=== PATIENT | female | born 1975 | race Caucasian/White ===

== ENCOUNTER 2020-05-06 21:55 | Observation (INO) | payer OTHER ==
[~2020-05-06] VITALS: Ht 167.6 cm; Wt 65.1 kg
[2020-05-06 21:57] VITALS: BP 123/73
[2020-05-06 22:32] LABS: ABSOLUTE NEUTROPHILS 2.1 thou/uL (1.4-8.2); BASOPHILS 1.3 % (0.0-2.0); EOSINOPHILS 5.4 % (0.0-3.0); HEMATOCRIT 37.6 % (37.0-47.0); HEMOGLOBIN 12.8 gm/dL (12.0-15.0); LYMPHOCYTES 41.1 % (24.0-44.0); MCH 30.6 pg (26.0-34.0); MCV 89.8 fL (80.0-100.0); MONOCYTES 10.2 % (1.0-8.0); PLATELET COUNT 243 thou/uL (150-400); RBC 4.19 mil/uL (4.20-5.00); RDW 13.1 % (10.5-14.5); WBC 5.1 thou/uL (4.0-11.0)
[2020-05-06 22:40] LABS: ANION GAP 8 mmol/L (7-16); BUN 12 mg/dL (7-18); CALCIUM 8.3 mg/dL (8.5-10.1); CHLORIDE 103 mmol/L (98-107); CO2 25 mmol/L (21-32); CREATININE 0.7 mg/dL (0.6-1.0); GLUCOSE 145 mg/dL (74-106); POTASSIUM 4.2 mmol/L (3.5-5.1); SODIUM 136 mmol/L (136-145)
[2020-05-06 22:50] LABS: ALBUMIN 3.2 g/dL (3.4-5.0); SGOT 31 U/L (15-37); SGPT 42 U/L (14-59); TOTAL BILIRUBIN 0.3 mg/dL (0.2-1.0); TOTAL PROTEIN 6.1 g/dL (6.4-8.2); TROPONIN-I <0.06 ng/mL (<0.06)
[2020-05-06 23:56] VITALS: BP 130/89
[2020-05-07] VITALS (7 sets, daily range): BP systolic 102–120; BP diastolic 63–79
--- NOTE | 2020-05-07 03:41 | NUR ---
PT ADMITTED TO ROOM 218 FROM ER, DENIES PAIN, VSS, RA, NPO, ADMITTED TO UNIT ALL QUESTIONS RESOLVED ORIENTED TO ROOM, WILL CON'T TO MONITOR PER PPOC.
[2020-05-07 05:04] LABS: CHOLESTEROL 133 mg/dL (<200); HDL CHOLESTEROL 64 mg/dL (>40); LDL CHOLESTEROL 61 mg/dL (<100); TC:HDL 2.1 Ratio (Not establshd); TRIGLYCERIDE 43 mg/dL (<150); VLDL 9 mg/dL (<40)
[2020-05-07 05:05] LABS: SERUM ASSESSMENT Clear
[2020-05-07 05:35] LABS: HEMATOCRIT 39.5 % (37.0-47.0); HEMOGLOBIN 13.1 gm/dL (12.0-15.0); MCH 30.3 pg (26.0-34.0); MCHC 33.3 g/dL (28.0-37.0); RBC 4.34 mil/uL (4.20-5.00); RDW 12.9 % (10.5-14.5); WBC 4.4 thou/uL (4.0-11.0)
[2020-05-07 11:10] LABS: HEMATOCRIT 40.3 % (37.0-47.0); HEMOGLOBIN 13.3 gm/dL (12.0-15.0); MCH 30.1 pg (26.0-34.0); MCV 90.9 fL (80.0-100.0); RBC 4.43 mil/uL (4.20-5.00); WBC 3.9 thou/uL (4.0-11.0)
[2020-05-08 01:06] VITALS: BP 116/75
[2020-05-08 04:05] LABS: GLYCOHEMOGLOBIN (HGB A1C) 5.8 % (4.8-5.6)
--- NOTE | 2020-05-08 07:24 | EKG ---
[address] [address] ELECTROCARDIOGRAM REPORT Name: RADHA OCHOA Room #: 218-P [facility]..#: [id number] Admission: 05/06/20 Attend Phys: Andrew Camarena MD Discharge: Date of : 71 Report #: [id number] [facility] Test Date: 2020-05-06 Test Time: 22:05:37 Pat Name: RADHA OCHOA Department: Room: 218 Gender: F Mail Room: BLAIRE MCMULLEN : 1975 Requested By: Earl Andrade Order Number: [id number] MD: Mac Toro Measurements Intervals [place] Rate: 86 P: 63 IA: 146 QRS: 56 QRSD: 79 T: 57 QT: 339 QTc: 406 Interpretive Statements Sinus rhythm No previous ECG available for comparison Electronically Signed On 05-08-2020 7:23:52 CDT by Mac Toro [email or web address] <ELECTRONICALLY SIGNED> By: Mac Toro MD, [facility] 05/08/20 0723 [id number] 04 Mac Toro MD, FACC /EPI
--- NOTE | 2020-05-08 07:54 | NUR ---
PT AMBULATING TO BATHROOM INDEPENDENTLY AND IS TOLERATING WELL. PT REPORTED A BRIEF PERIOD OF CHEST PAIN AT 0100--LASTED 2 MINUTES. VITALS TAKEN AND WERE NORMAL. NO REPORTS OF CHEST PAIN REMAINDER OF SHIFT. RESTED COMFORTABLY. NO NEEDS VOICED. CALL LIGHT WITHIN REACH. FREQUENT OBSERVATION.
--- NOTE | 2020-05-08 13:56 | 2DMMODE ---
[facility] [place] [address] 2 D/M-MODE ECHOCARDIOGRAM Name: RADHA OCHOA Room #: 218-P ADM Mckenzie M.R.#: [id number] Admission: 05/06/20 Attend Phys: Andrew Camarena MD Discharge: Date of : 71 Report #: [id number] THIS REPORT FOR: cc: GEOFFREY - No family physician/PCP FAM - No family physician/PCP Dariusz Miranda MD ~ APPROVED REPORT Study performed: 05/08/2020 10:39:45 EXAM: Comprehensive 2D, Doppler, and color-flow Echocardiogram Patient Location: In-Patient Room #: 218 Status: routine BSA: 1.73 HR: 89 bpm BP: 116/75 mmHg Rhythm: NSR Other Information Study Quality: Good Indications Chest Pain 2D Dimensions RVDd: 23.08 mm IVSd: 8.65 (7-11mm) LVOT Diam: 19.60 (18-24mm) LVDd: 48.14 mm PWd: 9.12 (7-11mm) Ascending Ao: 24.35 (22-36mm) LVDs: 23.59 (25-40mm) Left Atrium: 30.33 (27-40mm) Aortic Root: 22.37 mm IVC: 17.00 mm Volumes Left Atrial Volume (Systole) Single Plane 4CH: 16.06 mL Single Plane 2CH: 16.47 mL LA ESV Index: 11.00 mL/m2 Aortic Valve AoV Peak Cam.: 1.24 m/s AO Peak Gr.: 6.16 mmHg LVOT Max P.82 mmHg LVOT Max V: 1.10 m/s LIBBY Vmax: 2.67 cm2 [facility] [address] [place] [address] 2 D/M-MODE ECHOCARDIOGRAM Name: RADHA OCHOA Room #: 218-P [facility]#: [id number] Admission: 05/06/20 Attend Phys: Andrew Camarena, Discharge: Date of : 71 Report #: [id number] Mitral Valve E/A Ratio: 1.2 MV Decel. Time: 129.34 ms MV E Max Cam.: 0.59 m/s MV A Cam.: 0.51 m/s MV PHT: 37.51 ms IVRT: 64.59 ms Pulmonary Valve PV Peak Cam.: 0.94 m/s PV Peak Gr.: 3.55 mmHg Pulmonary Vein P Vein S: 0.55 m/s P Vein A: 0.35 m/s P Vein D: 0.49 m/s P Vein A Dur.: 129.2 msec P Vein S/D Ratio: 1.12 Left Ventricle The left ventricle is normal size. There is normal LV segmental wall motion. There is normal left ventricular wall thickness. Left ventricular systolic function is normal. The left ventricular ejection fraction is within the normal range. LVEF is 55-60%. Grade II - pseudonormal filling dynamics. Right Ventricle The right ventricle is normal size. The right ventricular systolic function is normal. Atria The left atrium size is normal. The right atrium size is normal. Aortic Valve The aortic valve is normal in structure. No aortic regurgitation is present. There is no aortic valvular stenosis. Mitral Valve The mitral valve is normal in structure. There is no mitral valve regurgitation noted. No evidence of mitral valve stenosis. Tricuspid Valve The tricuspid valve is normal in structure. There is no tricuspid valve regurgitation noted. Pulmonic Valve The pulmonary valve is normal in structure. There is no pulmonic [facility] [address] [place] [address] 2 D/M-MODE ECHOCARDIOGRAM Name: RADHA OCHOA Room #: 218-P [facility] .R.#: [id number] Admission: 05/06/20 Attend Phys: Andrew Camarena, Discharge: Date of : 71 Report #: [id number] valvular regurgitation. Great Vessels The aortic root is normal in size. IVC is normal in size and collapses >50% with inspiration. Pericardium There is no pericardial effusion. <Conclusion> The left ventricle is normal size. LVEF is 55-60%. The aortic valve is normal in structure. The mitral valve is normal in structure. The tricuspid valve is normal in structure. The pulmonary valve is normal in structure. The aortic root is normal in size. There is no pericardial effusion. <ELECTRONICALLY SIGNED> By: Dariusz Miranda MD 05/08/20 1356 [id number] [id number] Dariusz Miranda MD /INF
--- NOTE | 2020-05-08 15:43 | NUR ---
ASSESSMENT CHARTED. PT ALERT AND ORIENTED. HAD NUC STRESS TEST THIS AM. DENIED HAVING CHEST PAIN. SR ON TELE. NO CONCERNS AT THIS TIME.
[2020-05-08 15:59] VITALS: BP 116/75
--- NOTE | 2020-05-08 17:10 | NUR ---
ORDERS GIVEN TO DISCHARGE PT TO HOME. DISCHARGE INSTRUCTIONS GIVEN TO PT. PT VERBERLISED UNDERSTANDING.
== END 2020-05-08 17:10 | disposition home or self-care (01) ==
LOC: ER 21:55 → 2N 22:59 → EROBS 22:59 → 2N 05-07 00:05
PROVIDERS: Emergency Medicine; Internal Medicine; Nurse Practitioner Acute Care; ADMIT Internal Medicine; ATTEND Internal Medicine
DX: R07.89 Other chest pain (principal); R00.0 Tachycardia, unspecified; R11.0 Nausea; R06.02 Shortness of breath; Z88.5 Allergy status to narcotic agent; Z90.710 Acquired absence of both cervix and uterus